=== PATIENT | male | born 1985 | race African-American/Black ===

== ENCOUNTER 2020-06-13 12:42 | Emergency (ER) | payer OTHER ==
[~2020-06-13] VITALS: Ht 182.9 cm; Wt 170.1 kg
[2020-06-13] MEDS ORDERED: NORVASC 2.5 MG2.5 M1 PO (13:04)
[2020-06-13 14:40] VITALS: BP 160/98
== END 2020-06-13 14:40 | disposition home or self-care (01) ==
LOC: ER 12:42
DX: U07.1 COVID-19 (principal); R50.9 Fever, unspecified; R05 Cough; I10 Essential (primary) hypertension; Z79.899 Other long term (current) drug therapy

== ENCOUNTER 2020-11-09 12:28 | Emergency (ER) | payer OTHER ==
[~2020-11-09] VITALS: Ht 182.9 cm; Wt 158.8 kg
[~2020-11-09 12:28] MED LIST: NORVASC 2.5 MG2.5 M1 PO
[2020-11-09 14:15] VITALS: BP 164/10
== END 2020-11-09 14:15 | disposition home or self-care (01) ==
LOC: ER 12:28
DX: S86.812A Strain of other muscle(s) and tendon(s) at lower leg level, left leg, initial encounter (principal); I10 Essential (primary) hypertension; Z86.718 Personal history of other venous thrombosis and embolism; Z79.899 Other long term (current) drug therapy; X58.XXXA Exposure to other specified factors, initial encounter; Y93.89 Activity, other specified; Y92.89 Other specified places as the place of occurrence of the external cause; Y99.9 Unspecified external cause status